=== PATIENT | male | born 1935 | race Caucasian/White ===

== ENCOUNTER 2017-04-02 07:15 | Emergency (ER) | payer MEDICARE ==
[2017-04-02 08:09] LABS: HEMOGLOBIN 10.1 gm/dl (14.0-17.5); RED BLOOD COUNT 3.12 M/UL (4.20-5.50); WHITE BLOOD COUNT 7.5 K/UL (4.5-11.0)
== END 2017-04-02 15:03 | disposition home or self-care (01) ==
LOC: ER1 07:15
PROVIDERS: Physician Assistant
DX: K43.9 Ventral hernia without obstruction or gangrene (principal); I10 Essential (primary) hypertension; D64.9 Anemia, unspecified; Z79.899 Other long term (current) drug therapy
CPT/HCPCS: 36415; 71010; 80053; 82150; 82550; 82553; 83690; 83874; 84484; 85025; 93005; 96374; 96375; 99284; J2270; J2405

== ENCOUNTER → 2017-04-24 | Outpatient (CLI) | payer MEDICARE | LOC: RAD 14:47 | DX: R07.9 Chest pain, unspecified (principal) | CPT/HCPCS: 71020 ==

== ENCOUNTER 2020-12-30 13:02 | Emergency (ER) | payer MEDICARE ==
[~2020-12-30 13:02] MED LIST: CENTRAM-CA9 MG/15 ML PO; COLACE 100MG C100 MG PO; COLACE CLEAR50 MG PO; COZAAR50 MG PO; DULCOLAX10 MG PR; FLOMAX0.4 MG PO; HYDROCHLOROTHIA50 MG PO; HYDROCODON-ACE1 EAC2 PO; K-DUR TAB 20 M20 MEQ PO; LASIX40 MG PO; LAXATIVE SUPPOS10 MG PR; LOPID TAB 600600 MG PO; LOPRESSOR 25 MG25 MG PO; MAGOX 400400 MG PO; MELATONIN3 MG PO; MOBIC7.5 MG PO; MYLICON CHEWABL80 MG PO; NEURONTIN 100100 MG PO; OLANZAPINE5 MG PO; OS-CAL 500+D31 EACH PO; PANTOPRAZOLE SO40 MG PO; SERTRALINE HCL25 MG PO; SIMETHICONE80 MG PO; VITAMIN B-121000 MCG PO; VITAMIN D250000 UNIT PO; ZOCOR10 MG PO
[2020-12-30 14:22] LABS: HEMOGLOBIN 11.7 gm/dl (14.0-17.5); RED BLOOD COUNT 3.59 M/UL (4.20-5.50); WHITE BLOOD COUNT 6.3 K/UL (4.5-11.0)
[2020-12-30] MEDS ORDERED: MIRALAX 119 GR119 GM PO (19:15)
== END 2020-12-30 20:00 | disposition home or self-care (01) ==
LOC: ER1 13:02
PROVIDERS: Emergency Medicine
DX: K52.9 Noninfective gastroenteritis and colitis, unspecified (principal); K56.41 Fecal impaction; I10 Essential (primary) hypertension
CPT/HCPCS: 80053; 81001; 82272; 83690; 85025; 85610; 85730; 96374; 96375; 99284; C9113; J7030; Q9965